=== PATIENT | female | born 1995 | race Caucasian/White ===

== ENCOUNTER 2020-09-03 23:37 | Emergency (ER) | payer OTHER, SELFPAY ==
[2020-09-03 23:40] VITALS: BP 132/63; PULSE 88; RESP 16; TEMP 36.8; O2SAT 95; BMI 23.8
--- NOTE | 2020-09-03 23:59 | RAD_ITS ---
STUDY: X-RAY - LEFT FOOT CLINICAL: Female, 25 years old. Injury. TECHNIQUE: 3 view(s) of the foot. COMPARISON: None. FINDINGS: Acute nondisplaced fracture through the posterior tip of the fifth metacarpal base. Mild adjacent soft tissue swelling. No other fracture is evident. Alignment is anatomic. Normal bony mineralization. No significant degenerative changes. RAD/Foot min 3 Views IMPRESSION: Acute nondisplaced fracture through the posterior tip of the fifth metacarpal base. Electronically Signed: Mike Marie MD at 2:00 EDT Tel , Service support ,
--- NOTE | 2020-09-04 00:21 | ED.VIS.LOWEX ---
History of Present Illness Chief Complaint: Lower Extremity Injury Informant: Patient Occurred: Hours - 1-2 Mechanism/Context: - - see below Context: Sudden Onset Timing: Continuous Quality of Pain: Aching Location: left foot Current Severity: Moderate Maximum Severity: Severe Worsened by: moving, trying to WB LLE Relieved by: remaining still Associated Symptoms: Negative for: Parasthesia, Weakness, Loss of Funtion Narrative: Patient states she woke up in her foot was asleep because she was laying on it weird, and instead of waiting she tried to walk on it, this caused her foot/ankle to give out, and she describes a hyper plantarflexion mechanism of injury during which she felt a crack in her midfoot area, followed by swelling in the lateral aspect of the midfoot. It hurts a lot to put weight on it. No other injuries. Sensation and motor function has returned to normal and her foot afterwards shortly thereafter. Past Medical History - Allergies and Home Meds Allergies/Adverse Reactions: Allergies No Known Allergies Allergy (Verified 09/03/20 23:38) Primary Care Physician: Barbra Almonte DPM [STAFF PHYSICIAN] - 5-7 Days Ja Reyes MD [Primary Care Provider] - Past Medical History: None Smoking Status: Never smoker Review of Systems General: Denies: Chills, Fever, Sweats Cardiovascular: Denies: Chest pain, Palpitations Respiratory: Denies: Dyspnea, Cough, Dyspnea on exertion Gastrointestinal: Denies: Abdominal pain, Nausea, Vomiting, Diarrhea Musculoskeletal: Reports: Extremity Pain. Denies: Neck pain, Back pain, Swelling Neurological: Reports: Weakness - Transient. See HPI., Parasthesia - Transient. See HPI.. Denies: Headache Physical Exam Vital Signs/Narrative: Vital Signs Temp Pulse Resp BP Pulse Ox 09/03/20 23:40 98.2 F 88 16 132/63 H 95 Inital Vital Signs reviewed: Yes - Extremity Exam Left Ankle: Limited ROM - Due to pain at swollen area distal to ankle. No bony ankle tenderness. Able to dorsiflex and plantarflex. Left Foot: Contusion - Peroneal proximal midfoot with focal swelling and tenderness. Mildly tender also base of fifth metatarsal. No tenderness in forefoot or calcaneus. No deformity. Skin intact. No erythema or excessive warmth to suggest infection or abscess. General: Well nourished, Well developed, - - NAD Head: Normocephalic, Atraumatic Cardiovascular: - - 2+/4 dorsalis pedis pulse bilaterally Respiratory: No distress Skin: Normal color, No rash, Trauma - See above. Skin intact. Neurological: Alert, Oriented x3, Cranial nerves II-XII grossly intact, Normal Strength, Normal Sensation Psychological: Normal affect, Normal Mood Diagnostic/Tx/Re-eval Clinical Impression(s) from Imaging Studies Foot X-Ray 09/03/20 23:59 IMPRESSION: Acute nondisplaced fracture through the posterior tip of the fifth metacarpal base. Electronically Signed: Mike Marie MD at 2:00 EDT Tel , Service support , - Medical Decision Making On my interpretation, 3 view x-ray series of the left foot shows a nondisplaced avulsion fracture of the base of the fifth metatarsal. I see no other midfoot fractures. This is consistent with an avulsion and NOT a Unger fracture. She was placed in a postop shoe, given crutches, offered analgesics, and referred to podiatry as an outpatient. ED Disposition - Plan for ED Patient: Disposition: Home or Assisted Living Diagnosis: Fracture of fifth metatarsal bone of left foot Instructions: ED Fracture, Foot Referrals: Ja Reyes MD [Primary Care Provider] - Barbra Almonte DPM [STAFF PHYSICIAN] - 5-7 Days
[2020-09-04] MEDS: traMADol 50 MG Tablet PO (00:38)
[2020-09-04 01:35] VITALS: RESP 14
== END 2020-09-04 01:36 | disposition home or self-care (01) ==
LOC: ED 09-04 00:46
PROVIDERS: Emergency Provider Emergency Medicine; PCP Family Medicine
DX: S92.355A Nondisplaced fracture of fifth metatarsal bone, left foot, initial encounter for closed fracture (principal); X58.XXXA Exposure to other specified factors, initial encounter; Y93.01 Activity, walking, marching and hiking; Y92.9 Unspecified place or not applicable; Y99.9 Unspecified external cause status
CPT/HCPCS: 73630; 99283